=== PATIENT | female | born 1970 | race Caucasian/White ===

== ENCOUNTER → 2017-01-28 | Outpatient (CLI) | payer OTHER | END | disposition home or self-care (01) | LOC: CFH 09:56 | PROVIDERS: ATTEND Physician Assistant | DX: K95.09 Other complications of gastric band procedure (principal) | CPT/HCPCS: 74241 ==

== ENCOUNTER → 2017-06-10 | Outpatient (CLI) | payer OTHER ==
[~2017-06-10] MED LIST: FLUO40CA9 PO
[2017-06-10 14:01] LABS: HEMATOCRIT 47.3 % (34.6-47.8); HEMOGLOBIN 15.7 g/dL (11.7-16.4); WHITE BLOOD COUNT 8.3 x10^3/uL (3.4-10)
[2017-06-10 14:08] LABS: BLOOD UREA NITROGEN 21 mg/dL (7-18); TOTAL IRON BINDING CAPACITY 413 mcg/dL (250-450)
[2017-06-10 14:35] LABS: ASPARTATE AMINO TRANSFERASE 12 U/L (15-37); TRANSFERRIN 315 mg/dL (200-360)
== END | disposition home or self-care (01) ==
LOC: STAR 12:38
PROVIDERS: ATTEND Thoracic Surgery (Cardiothoracic Vascular Surgery)
DX: Z01.818 Encounter for other preprocedural examination (principal); F90.9 Attention-deficit hyperactivity disorder, unspecified type; F41.8 Other specified anxiety disorders; E66.01 Morbid (severe) obesity due to excess calories; K21.9 Gastro-esophageal reflux disease without esophagitis; K95.09 Other complications of gastric band procedure; F32.9 Major depressive disorder, single episode, unspecified; E55.9 Vitamin D deficiency, unspecified; E78.5 Hyperlipidemia, unspecified; R79.89 Other specified abnormal findings of blood chemistry; R79.1 Abnormal coagulation profile
CPT/HCPCS: 36415; 71020; 80053; 80061; 82306; 82607; 82728; 82746; 83540; 83550; 83970; 84134; 84425; 84466; 85025; 85610; 85730; 93005